=== PATIENT | female | born 1975 | race Caucasian/White ===

== ENCOUNTER 2016-12-27 08:25 | Day surgery (SDC) | payer OTHER ==
[~2016-12-27 08:25] MED LIST: Aloe Vera/Sodium Chloride Gel 14.1 GM Tube ONE; Dexamethasone 4 MG/ML 5 ML MDV ONE; EPINEPHrine 1 MG/ML SDV ONE; Lidocaine 2% 5 ML SDV ONE; Lidocaine 2% with EPINEPHrine 1:100,000 20 ML MDV ONE; Midazolam 1 MG/ML 2 ML SDV ONE; Neostigmine Methylsulfate 1 MG/ML 5 ML Syringe ONE; Ondansetron 4 MG/2 ML SDV ONE; Oxymetazoline 0.05% Nasal Spray 15 ML Bottle ONE; Phenylephrine 1% 10 MG/ML SDV ONE; Propofol 200 MG/20 ML SDV ONE; Remifentanil 1 MG Vial ONE; Rocuronium 10 MG/ML 10 ML Syringe ONE; Sodium Chloride 0.9% 60 ML ONE; Thrombin (Bovine) 5,000 Unit Kit ONE; ceFAZolin 2 GM in Premix Bag 1 BAG IV ONE; fentaNYL 250 MCG/5 ML SDV ONE
[2016-12-27] MEDS ORDERED: Lactated Ringers 1,000 ML IV SCH (09:00)
--- NOTE | 2016-12-27 09:06 | PCM.PREANE ---
Preanesthetic Assessment - Anesthesia/Transfusion/Family Hx Anesthesia History: Prior Anesthesia Without Reaction Family History of Anesthesia Reaction: No Transfusion History: No Prior Transfusion(s) Intubation History: Unknown - Review of Systems General: No Symptoms Pulmonary: No Symptoms Cardiovascular: No Symptoms Gastrointestinal: No Symptoms Neurological: No Symptoms Other: Reports: None - Physical Assessment Height: 1.65 m Weight: 93.894 kg ASA Class: 2 Mental Status: Alert & Oriented x3 Airway Class: Mallampati = 2 Dentition: Reports: Normal Dentition Thyro-Mental Finger Breadths: 3 Mouth Opening Finger Breadths: 2 ROM/Head Extension: Full Lungs: Clear to Auscultation, Normal Respiratory Effort Cardiovascular: Regular Rate, Regular Rhythm - Lab Values: Laboratory Last Values Urine HCG, Qual NEGATIVE (NEGATIVE) 12/27/16 08:29 - Allergies Allergies/Adverse Reactions: Allergies Allergy/AdvReac Type Severity Reaction Status Date / Time diphenhydramine Allergy Anxiety Verified 12/22/16 16:54 [From Benadryl] ketorolac [From Toradol] Allergy Abdominal Verified 12/22/16 16:54 Pain montelukast [From Singulair] Allergy Irritabilit Verified 12/22/16 16:54 y prednisone Allergy Tachycardia Verified 12/22/16 16:54 - Blood Blood Available: No - Anesthesia Plan Pre-Op Medication Ordered: None - Acknowledgements Anesthesia Type Planned: General Anesthesia Pt an Appropriate Candidate for the Planned Anesthesia: Yes Alternatives and Risks of Anesthesia Discussed w Pt/Guardian: Yes Pt/Guardian Understands and Agrees with Anesthesia Plan: Yes PreAnesthesia Questionnaire HEENT History: Reports: Allergic Rhinitis, Sinusitis Other HEENT History: wears glasses Cardiovascular History: Reports: None Respiratory History: Reports: Asthma Other Respiratory History: has Allergy Induced Asthma Gastrointestinal History: Reports: None 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 Musculoskeletal History: Reports: Back Pain, Chronic, Fracture Other Musculoskeletal History: hx of fx finger Neurological History: Reports: Migraines, Other (See Below) Other Neuro History: hx of motion sickness Psychiatric History: Reports: None Endocrine/Metabolic History: Reports: Obesity/BMI 30+ Hematologic History: Reports: None Immunologic History: Reports: None Oncologic (Cancer) History: Reports: None Dermatologic History: Reports: None - Past Surgical History Head Surgeries/Procedures: Reports: None GI Surgical History: Reports: Cholecystectomy Female Surgical History: Reports: Other (See Below) Other Female Surgeries/Procedures: exploratory laparotomy to check for endometriosis (none found) Musculoskeletal Surgical History: Reports: None - SUBSTANCE USE Smoking Status *Q: Never Smoker Recreational Drug Use History: No - HOME MEDS Home Medications: Home Meds Albuterol [IJD: Albuterol HFA] 1 puff INH ASDIRECTED PRN 12/22/16 [History] Budesonide [Pulmicort Flexhaler] 1 puff INH ASDIRECTED PRN 12/22/16 [History] Fish Oil/Jay-3 Fatty Acids [Fish Oil 1,000 MG] 1,000 mg PO DAILY 12/22/16 [ History] Multivitamin [Daily Multiple Vitamin] 1 tab PO DAILY 12/22/16 [History] - CURRENT (IN HOUSE) MEDS Current Meds: Current Medications Lactated Ringer's (Ringers, Lactated) 1,000 mls @ 125 mls/hr IV ASDIRECTED BRENT Discontinued Medications Dexamethasone (Dexamethasone) Confirm Administered Dose 20 mg .ROUTE .STK-MED ONE Stop: 12/27/16 07:18 Epinephrine HCl (Adrenalin 1:1000) Confirm Administered Dose 3 mg .ROUTE .STK- MED ONE Stop: 12/27/16 07:18 Fentanyl (Sublimaze) Confirm Administered Dose 250 mcg .ROUTE .STK-MED ONE Stop: 12/27/16 07:31 Glycopyrrolate () Confirm Administered Dose 1 mg .ROUTE .STK-MED ONE Stop: 12/27/16 07:31 Cefazolin Sodium/Dextrose 2 gm (/ Premix) 50 mls @ 100 mls/hr IV ONETIME ONE Stop: 12/27/16 00:30 Sodium Chloride (Normal Saline) Confirm Administered Dose 60 mls @ as directed .ROUTE .STK-MED ONE Stop: 12/27/16 07:36 Lidocaine (Xylocaine-Mpf 2%) Confirm Administered Dose 10 ml .ROUTE .STK-MED ONE Stop: 12/27/16 07:18 Lidocaine (Xylocaine-Mpf 2%) Confirm Administered Dose 5 ml .ROUTE .STK-MED ONE Stop: 12/27/16 07:31 Lidocaine/Epinephrine (Xylocaine 2% With Epinephrine 1:100,000) Confirm Administered Dose 20 ml .ROUTE .STK-MED ONE Stop: 12/27/16 07:19 Midazolam HCl (Versed 1 Mg/Ml) Confirm Administered Dose 2 mg .ROUTE .STK-MED ONE Stop: 12/27/16 07:31 Neostigmine Methylsulfate (Neostigmine) Confirm Administered Dose 5 mg .ROUTE .STK-MED ONE Stop: 12/27/16 07:31 Ondansetron HCl (Zofran) Confirm Administered Dose 4 mg .ROUTE .STK-MED ONE Stop: 12/27/16 07:31 Oxymetazoline HCl (Afrin Original 0.05% Nasal [place]) Confirm Administered Dose 30 ml .ROUTE .STK-MED ONE Stop: 12/27/16 07:19 Phenylephrine HCl (Bernard-Synephrine) Confirm Administered Dose 10 mg .ROUTE .STK- MED ONE Stop: 12/27/16 07:31 Propofol (Diprivan 20 Ml) Confirm Administered Dose 200 mg .ROUTE .STK-MED ONE Stop: 12/27/16 07:31 Propofol (Diprivan 20 Ml) Confirm Administered Dose 600 mg .ROUTE .STK-MED ONE Stop: 12/27/16 07:32 Remifentanil (Ultiva) Confirm Administered Dose 2 mg .ROUTE .STK-MED ONE Stop: 12/27/16 07:34 Rocuronium [place] (Zemuron) Confirm Administered Dose 100 mg .ROUTE .STK-MED ONE Stop: 12/27/16 07:31 Sodium Chloride ([place] Saline Nasal Gel) Confirm Administered Dose 14.1 gm .ROUTE .STK-MED ONE Stop: 12/27/16 07:23 Thrombin (Thrombin-Jmi) Confirm Administered Dose 5,000 unit .ROUTE .STK-MED ONE Stop: 12/27/16 07:19
[2016-12-27] MEDS ORDERED: Sodium Chloride 0.9% 20 ML ONE (09:47)
[2016-12-27] MEDS ORDERED: ePHEDrine 50 MG/ML SDV ONE (09:48)
[2016-12-27] MEDS ORDERED: Water For Injection, Sterile 20 ML ONE ×2 (09:49→11:21)
--- NOTE | 2016-12-27 11:07 | PCM.OPNOTE ---
- General Post-Op/Procedure Note Date of Surgery/Procedure: 12/27/16 Condition: Good Free Text/Narrative:: Pre operative diagnosis: Nasal obstruction, chronic sinusitis, deviated nasal septum, elyssa inferior turbinate hypertrophy, elyssa maxillary and ethmoid sinusitis. Post operative diagnosis: As above Procedure: Coblation reducion of bilateral inferior turbinates [ CPT 54817 (50)] , Nasal septoplasty [ 66671 ], Bilateral Endoscopic sinus surgery - middle meatal antrotomy [ CPT 56495 (50)], bilateral ethmoidectomy [ CPT 82926(50)], uncinectomy, Sinus Navigation [ 34275] Surgeon: Roselia Dickson MD Anesthesia: GA Anesthesiologist: Key Lam Date of procedure: 12/27/2016 Indications: Mame was seen in my clinic with above symptoms. A CT scan of the paranasal sinuses showed bilateral osteo meatal unit blockage with mild maxillary sinus disease with patchy opacification ethmoid sinuses bilaterally with deviated nasal septum. Her symptoms persisted despite maximal medical therapy. With her persistent clinical symptoms and CT findings she was consented for the procedure above. Findings: Bilateral inferior turbinate hypertrophy. Deviation of the nasal septum predominantly to the left side. Spur along the floor on the left impinging on the inferior turbinate posteriorly - this was found to be a combination of septal cartilage and vomer. There was also high deviation of the septum on the left corresponding to the perpendicular plate of the ethmoid. Edematous osteomeatal unit bilaterally. Ethmoid cells were clear. Operation details: An informed consent was obtained. A time out was performed and the patient was brought back to the operating room. Gen. anesthesia was administered with an endotracheal tube. Bilateral eyes were left exposed and lubricating ointment was inserted into the eyes. A pharyngeal pack was placed. A 0 degree rigid nasal endoscope was used to examine bilateral nasal cavities and photo documentation was obtained. The left inferior turbinate was addressed first. 2% lidocaine was injected into the inferior turbinate - 3 mls were used. The nasal cavity was packed with Afrin soaked pledget. After adequte period of decongestion the pledget was removed. A reflex 45 coblation wand with tip dipped in AYR Gel was used at setting of 6 :2 for Coblation and coagulation respectively. The point of entry was coagulated and wand was inserted till the third marking. Three jones were created in the single channel. The inferior turbinate was visibly shrunk. Similar procedure was repeated on the right side - 3ml of lidocaine was used; there was visible reduction in size of turbinate subsequent to coblation. Bilateral nasal cavities were then packed with oxymetazoline 0.05% soaked cottonoid pledgets. After an appropriate period of decongestion the pledgets were removed. Nasal septum was infiltrated with 2% lidocaine 1: 100, 000 epinephrine in a standard fashion-a total of 4.5 mls was used. The pledgets were then removed. A Left Fady incision was performed. A left sided mucoperichondrial flap was elevated-dissection was commenced with 2 mm osteotome and further carried out with combination of navdeep and Ophiem elevators. Posteriorly the flap was continued as a muco periosteal flap. A posterior chondrotomy was performed. Right-sided mucoperiosteal flap was elevated. A hare scissor was used and the perpendicular plate of the ethmoid was removed. Carefully , the flap was elevated off the Left sided bony cartilaginous spur. There was a tear in the flap on Left along the floor. Contralateral flap along the floor of cartilage was also elevated. Flap on the Right side was intact throughout. The chondro vomerine spur was removed. Subsequent to this, the septum was positioned towards the midline. Flap incision was sutured with 4-0 plain gut. Mattress sutures were also performed. The [employer] medical navigation system was set up and the Tracker was fixed to the fore head as per protocol and successful registration was obtained. The left middle turbinate axilla and the head of middle turbinate were infiltrated with 2% lidocaine and 1 in 100,000 epinephrine-a total of 1.0 ml was used. Similar injections were performed on the right side and further 1 ml was used on this side. A cottonoid pledget soaked in 1: 5000 epinephrine each was placed in the middle meatus, draping over the middle turbinate axilla and in the sphenoethmoid recess- this was done bilaterally. The left side was addressed first. After appropriate period of decongestion the cottonoid pledgets were removed. The middle turbinate was gently medialized with freer elevator and the 0 rigid nasal endoscope was introduced into the middle meatus. The posterior free edge of the uncinate process was identified and medialized with a ball probe. A right sided pediatric backbiter was used to remove the uncinate process at the junction of the horizontal and vertical part. A straight shot tri-cut blade with navigation attached to it was then used to debride the vertical attachment of the uncinate process up to the attachment of and including the Agger nasi cell. A ball probe was then used to identified the left maxillary sinus ostium The horizontal part of the uncinate process was then further dissected away with a ball probe and then with a combination of microdebrider and cold steel dissection. The 30 rigid endoscope was used to examine the maxillary ostium - findings as above. The maxillary sinus was thoroughly irrigated with saline. A 0 degree nasal endoscope was used and next the natural ostium of the left bulla ethmoidalis was identified and down fractured with a curette. Further removal of the bulla was performed with a microdebrider blade and anterior ethmoid cells were removed. The mucosa of bulla and anterior ethmoid cells was healthy. The posterior ethmoids were entered by penetrating the ground lamella at the junction of horizontal and vertical part with a curette; further dissection was carried out with a microdebrider and the anterior layer of posterior ethmoid cells were cleared sequentially. Attention was then directed towards the right side. The cottonoid pledgets were removed. The middle turbinate was gently medialized with freer elevator and the 0 rigid nasal endoscope was introduced into the middle meatus. The posterior free edge of the uncinate process was identified and medialized with a ball probe. A left sided pediatric backbiter was used to remove the uncinate process at the junction of the horizontal and vertical part. A straight shot tri-cut blade with navigation attached to it was then used to debride the vertical attachment of the uncinate process up to the attachment of Agger nasi cell. A ball probe was then used to identified the left maxillary sinus ostium The horizontal part of the uncinate process was then further dissected away with a ball probe and then with a combination of microdebrider and cold steel dissection. The 30 rigid endoscope was used to examine the maxillary ostium - findings as above. The maxillary sinus was thoroughly irrigated with saline. A 0 degree nasal endoscope was used and next the natural ostium of the left bulla ethmoidalis was identified and down fractured with a curette. Further removal of the bulla was performed with a microdebrider blade and anterior ethmoid cells were removed. The mucosa of bulla and anterior ethmoid cells was healthy. The posterior ethmoids were entered by penetrating the ground lamella at the junction of horizontal and vertical part with a curette; further dissection was carried out with a microdebrider and the anterior layer of posterior ethmoid cells were cleared sequentially. Bilateral middle meatus Nasopore packs placed; bilateral nasal [place] splints placed and sutured with 2.0 Nylon to columella.Hemostasis was ensured. Pharyngeal pack was removed. Specimens: none IV fluids: 2000 ml Blood loss: 20 ml Blood products: nil Disposition: PACU for recovery Follow up: 1 week.
[2016-12-27] MEDS ORDERED: Mineral Oil/Petrolatum Ophth Oint 3.5 GM Tube ONE (11:14)
[2016-12-27] MEDS ORDERED: Phenylephrine/Normal Saline 100 MCG/ML 10 ML Syringe ONE (11:19)
[2016-12-27] MEDS ORDERED: ceFAZolin 1 GM Vial ONE (11:21)
[2016-12-27] MEDS ORDERED: Phenylephrine 1% 10 MG/ML SDV ONE (13:18)
[2016-12-27] MEDS ORDERED: Propofol 200 MG/20 ML SDV ONE (13:20)
[2016-12-27] MEDS ORDERED: HYDROmorphone 2 MG/ML Syringe ONE (13:28)
[2016-12-27] MEDS ORDERED: Dexamethasone 4 MG/ML 5 ML MDV ONE (14:06)
[2016-12-27] MEDS ORDERED: fentaNYL 100 MCG/2 ML SDV IVPUSH PRN (14:29)
[2016-12-27] MEDS ORDERED: oxyCODONE 5 MG Tab PO PRN (14:51)
[2016-12-27] MEDS ORDERED: Acetaminophen 325 MG Tab PO PRN (14:51)
--- NOTE | 2016-12-27 15:18 | PCM.POSTAN ---
POST ANESTHESIA ASSESSMENT - MENTAL STATUS Mental Status: Alert - RESPIRATORY Respiratory Status: Respiratory Rate WNL, Airway Patent, O2 Saturation Stable - CARDIOVASCULAR CV Status: Pulse Rate WNL, Blood Pressure Stable, Elevated Pulse Rate - GASTROINTESTINAL GI Status: No Symptoms - POST OP HYDRATION Hydration Status: Adequate & Stable - OBSERVATIONS Free Text/Narrative:: No anesthesia related issues.
[2016-12-27] MEDS ORDERED: Ondansetron 4 MG/2 ML SDV IVPUSH ONE (17:45)
== END 2016-12-27 19:49 | disposition home or self-care (01) ==
LOC: MW.SDS 08:25 → MW.MS 17:09 → MW.SDS 19:49
PROVIDERS: ATTEND Otolaryngology
DX: J34.2 Deviated nasal septum (principal); J34.3 Hypertrophy of nasal turbinates; J32.0 Chronic maxillary sinusitis; J32.2 Chronic ethmoidal sinusitis; J45.909 Unspecified asthma, uncomplicated; E66.9 Obesity, unspecified; Z90.49 Acquired absence of other specified parts of digestive tract; Z98.890 Other specified postprocedural states; Z88.8 Allergy status to other drugs, medicaments and biological substances
CPT/HCPCS: 30520; 30802; 31255; 31256; 61782; 81025; A9270; J0171; J0690; J1100; J1170; J2250; J2370; J2405; J3010; J7120; 00160; J2704

== ENCOUNTER 2017-05-05 13:14 | Emergency (ER) | payer OTHER ==
[2017-05-05] MEDS ORDERED: Sodium Chloride 0.9% 1,000 ML IV ONE (13:42)
[2017-05-05] MEDS ORDERED: Sodium Chloride 0.9% 2.5 ML Syringe FLUSH PRN (13:42)
[2017-05-05] MEDS ORDERED: Sodium Chloride 0.9% 10 ML Syringe FLUSH PRN (13:42)
--- NOTE | 2017-05-05 13:44 | EDM.PDOC ---
ED HPI GENERAL MEDICAL PROBLEM - General Chief Complaint: Genitourinary Problem Stated Complaint: HAD SURGERY/PAIN DISCHARGE Time Seen by Provider: 05/05/17 13:15 Source of Information: Reports: Patient History Limitations: Reports: No Limitations - History of Present Illness INITIAL COMMENTS - FREE TEXT/NARRATIVE: History of present illness: []Patient had a total vaginal history 9 days ago with bladder sling and perineal repair. Review of systems: As per history of present illness and below otherwise all systems reviewed and negative. Past medical history: As per history of present illness and as reviewed below otherwise noncontributory. Surgical history: As per history of present illness and as reviewed below otherwise noncontributory. Social history: No reported history of drug or alcohol abuse. Family history: As per history of present illness and as reviewed below otherwise noncontributory. Physical exam: General: Well developed, well nourished in NAD HEENT: Atraumatic, normocephalic, pupils reactive, negative for conjunctival pallor or scleral icterus, mucous membranes moist, throat clear, neck supple, nontender, trachea midline. Lungs: Clear to auscultation, breath sounds equal bilaterally, chest nontender. Heart: S1S2, regular, negative for clicks, rubs, or JVD. Abdomen: Soft, nondistended, nontender. Negative for masses or hepatosplenomegaly. Negative for costovertebral tenderness. Pelvis: Stable nontender. Genitourinary: Dark red oozing blood from vagina no purulent drainage very tender to palpation. No obvious sign of active bleeding Rectal: Deferred. Extremities: Atraumatic, negative for cords or calf pain. Neurovascular unremarkable. Neuro: Awake, alert, oriented. Cranial nerves II through XII unremarkable. Cerebellum unremarkable. Motor and sensory unremarkable throughout. Exam nonfocal. Diagnostics: []Labs showing an slightly elevated white count is normal and ultrasound with no signs of abscess or infection Therapeutics: []Morphine for pain Impression: []Post operative bleeding Plan: []I spoke to Dr. Hameed in [facility] on-call [facility] who recommended ruling out an abscess and placing her on Keflex if negative. Keflex as directed follow-up with [facility]. Definitive disposition and diagnosis as appropriate pending reevaluation and review of above. Perineal Area Pain Score (Numeric/FACES): 6 - Related Data Allergies Allergy/AdvReac Type Severity Reaction Status Date / Time diphenhydramine Allergy Anxiety Verified 05/05/17 13:42 [From Benadryl] ketorolac [From Toradol] Allergy Abdominal Verified 05/05/17 13:42 Pain latex Allergy Wheezing Verified 05/05/17 13:42 montelukast [From Singulair] Allergy Irritabilit Verified 05/05/17 13:42 y prednisone Allergy Tachycardia Verified 05/05/17 13:42 Home Meds: Home Meds Cephalexin [Keflex] 500 mg PO Q6HR #40 cap 05/05/17 [Rx] Cetirizine HCl [Zyrtec] 10 mg PO DAILY 05/05/17 [History] Fexofenadine [Tiffany] 60 mg PO DAILY 05/05/17 [History] Past Medical History HEENT History: Reports: Allergic Rhinitis, Sinusitis Other HEENT History: wears glasses Cardiovascular History: Reports: None Respiratory History: Reports: Asthma Other Respiratory History: has Allergy Induced Asthma Gastrointestinal History: Reports: None [employer]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 Musculoskeletal History: Reports: Back Pain, Chronic, Fracture Other Musculoskeletal History: hx of fx finger Neurological History: Reports: Migraines, Other (See Below) Other Neuro History: hx of motion sickness Psychiatric History: Reports: None Endocrine/Metabolic History: Reports: Obesity/BMI 30+ Hematologic History: Reports: None Immunologic History: Reports: None Oncologic (Cancer) History: Reports: None Dermatologic History: Reports: None - Past Surgical History Head Surgeries/Procedures: Reports: None GI Surgical History: Reports: Cholecystectomy Female Surgical History: Reports: Other (See Below) Other Female Surgeries/Procedures: exploratory laparotomy to check for endometriosis (none found) Musculoskeletal Surgical History: Reports: None Social & Family History - Tobacco Use Smoking Status *Q: Never Smoker - Caffeine Use Caffeine Use: Reports: Coffee, Soda - Recreational Drug Use Recreational Drug Use: No Drug Use in Last 12 Months: No ED ROS GENERAL - Review of Systems Review Of Systems: See Below (See history of present illness) ED EXAM, RENAL/ - Physical Exam Exam: See Below (See history of present illness) Course - Vital Signs Last Recorded V/S: Last Vital Signs Temp 97.8 F 05/05/17 13:38 Pulse 90 05/05/17 13:38 Resp 18 05/05/17 13:38 BP 135/76 05/05/17 13:38 Pulse Ox 96 05/05/17 13:38 - Orders/Labs/Meds Orders: Active Orders 24 hr Category Date Time Status Pelvis Non OB Comp [US] Stat Exams 05/05/17 14:50 Taken CULTURE BLOOD [BC] Stat Lab 05/05/17 13:57 Received CULTURE BLOOD [BC] Stat Lab 05/05/17 14:10 Received Sodium Chloride 0.9% [Saline Flush] Med 05/05/17 13:42 Active 10 ml FLUSH ASDIRECTED PRN Sodium Chloride 0.9% [Saline Flush] Med 05/05/17 13:42 Active 2.5 ml FLUSH ASDIRECTED PRN Blood Culture x2 Reflex Set [OM.PC] Stat Oth 05/05/17 13:43 Ordered Saline Lock Insert [OM.PC] Stat Oth 05/05/17 13:42 Ordered Medication Orders Sodium Chloride (Saline Flush) 10 ml FLUSH ASDIRECTED PRN PRN Reason: Keep Vein Open Last Admin: 05/05/17 14:31 Dose: 10 ml Sodium Chloride (Saline Flush) 2.5 ml FLUSH ASDIRECTED PRN PRN Reason: Keep Vein Open Last Admin: 05/05/17 14:31 Dose: 2.5 ml Labs: Laboratory Tests 05/05/17 05/05/17 05/05/17 Range/Units 13:57 13:57 15:50 WBC 11.27 H (4.0-11.0) K/uL RBC 3.98 L (4.30-5.90) M/uL Hgb 12.2 (12.0-16.0) g/dL Hct 36.5 (36.0-46.0) % MCV 91.7 (80.0-98.0) fL MCH 30.7 (27.0-32.0) pg MCHC 33.4 (31.0-37.0) g/dL RDW Std Deviation 44.8 (28.0-62.0) fl RDW Coeff of Zuhair 14 (11.0-15.0) % Plt Count 346 (150-400) K/uL MPV 10.00 (7.40-12.00) fL Neut % (Auto) 71.0 (48.0-80.0) % Lymph % (Auto) 17.1 (16.0-40.0) % [place] % (Auto) 8.9 (0.0-15.0) % Eos % (Auto) 2.8 (0.0-7.0) % Baso % (Auto) 0.2 (0.0-1.5) % Neut # (Auto) 8.0 H (1.4-5.7) K/uL Lymph # (Auto) 1.9 (0.6-2.4) K/uL [place] # (Auto) 1.0 H (0.0-0.8) K/uL Eos # (Auto) 0.3 (0.0-0.7) K/uL Baso # (Auto) 0.0 (0.0-0.1) K/uL Nucleated RBC % 0.2 /100WBC Nucleated RBCs # 0 K/uL Sodium 139 (136-146) mmol/L Potassium 3.8 (3.5-5.1) mmol/L Chloride 107 (98-110) mmol/L Carbon Dioxide 21 (21-31) mmol/L BUN 15 (6.0-23.0) mg/dL Creatinine 0.7 (0.6-1.5) mg/dL Est Cr Clr Drug Dosing 95.17 mL/min Estimated GFR (MDRD) > 60.0 ml/min Glucose 90 (60-110) mg/dL Calcium 9.2 (8.8-10.8) mg/dL Total Bilirubin 0.5 (0.1-1.5) mg/dL AST 17 (5-40) IU/L ALT 26 (8-54) IU/L Alkaline Phosphatase 83 (40-150) Total Protein 7.1 (6.0-8.0) g/dL Albumin 3.7 (3.5-5.0) g/dL Globulin 3.4 (2.0-3.5) g/dL Albumin/Globulin Ratio 1.1 L (1.3-2.8) Urine Color DARK YELLOW Urine Appearance CLOUDY Urine pH 6.0 (5.0-8.0) Ur Specific [place] 1.025 (1.001-1.035) Urine Protein 30 (NEGATIVE) mg/dL Urine Glucose (UA) NEGATIVE (NEGATIVE) mg/dL Urine Ketones NEGATIVE (NEGATIVE) mg/dL Urine Occult Blood LARGE H (NEGATIVE) Urine Nitrite NEGATIVE (NEGATIVE) Urine Bilirubin NEGATIVE (NEGATIVE) Urine Ictotest NEGATIVE Urine Urobilinogen 0.2 (<2.0) EU/dL Ur Leukocyte Esterase MODERATE (NEGATIVE) Urine RBC 30-40 (0-2/HPF) Urine WBC 10-15 (0-5/HPF) Ur Epithelial Cells MODERATE (NONE-FEW) Amorphous Sediment LIGHT (NEGATIVE) Urine Bacteria 2+ H (NEGATIVE) Urine Mucus LIGHT (NONE-MOD) Meds: Medications Generic Name Dose Route Start Last Admin Trade Name Freq PRN Reason Stop Dose Admin Sodium Chloride 10 ml 05/05/17 13:42 05/05/17 14:31 Saline Flush FLUSH 10 ml ASDIRECTED PRN Administration Keep Vein Open Sodium Chloride 2.5 ml 05/05/17 13:42 05/05/17 14:31 Saline Flush FLUSH 2.5 ml ASDIRECTED PRN Administration Keep Vein Open Discontinued Medications Generic Name Dose Route Start Last Admin Trade Name Freq PRN Reason Stop Dose Admin Sodium Chloride 1,000 mls @ 999 mls/hr 05/05/17 13:42 05/05/17 14:30 Normal Saline IV 05/05/17 14:42 999 mls/hr .Bolus ONE Administration Morphine Sulfate 4 mg 05/05/17 14:58 05/05/17 15:20 Morphine IVPUSH 05/05/17 14:59 4 mg ONETIME ONE Administration Ondansetron HCl 4 mg 05/05/17 14:59 05/05/17 15:20 Zofran IVPUSH 05/05/17 15:00 4 mg ONETIME ONE Administration Departure - Departure Time of Disposition: 16:29 Disposition: Home, Self-Care 01 Condition: Good Clinical Impression: Post-op bleeding Qualifiers: Surgical complication system/body Area: genitourinary Procedure type: genitourinary Qualified Code(s): N99.820 - Postprocedural hemorrhage of a genitourinary system organ or structure following a genitourinary system procedure - Discharge Information Prescriptions: Cephalexin [Keflex] 500 mg PO Q6HR #40 cap Referrals: PCP,None [Primary Care Provider] - Forms: ED Department Discharge, ED Department Discharge Additional Instructions: The following information is given to patients seen in the emergency department who are being discharged to home. This information is to outline your options for follow-up care. We provide all patients seen in our emergency department with a follow-up referral. The need for follow-up, as well as the timing and circumstances, are variable depending upon the specifics of your emergency department visit. If you don't have a primary care physician on staff, we will provide you with a referral. We always advise you to contact your personal physician following an emergency department visit to inform them of the circumstance of the visit and for follow-up with them and/or the need for any referrals to a consulting specialist. The emergency department will also refer you to a specialist when appropriate. This referral assures that you have the opportunity for follow-up care with a specialist. All of these measure are taken in an effort to provide you with optimal care, which includes your follow-up. Under all circumstances we always encourage you to contact your private physician who remains a resource for coordinating your care. When calling for follow-up care, please make the office aware that this follow-up is from your recent emergency room visit. If for any reason you are refused follow-up, please contact the [facility] Emergency Department at and asked to speak to the emergency department charge nurse. Continue regular meds, Keflex as directed follow-up with [facility]. If symptoms worsen or change [facility] [address] [place] [id number] - My Orders Last 24 Hours: My Active Orders 05/05/17 13:42 Sodium Chloride 0.9% [Saline Flush] 10 ml FLUSH ASDIRECTED PRN Sodium Chloride 0.9% [Saline Flush] 2.5 ml FLUSH ASDIRECTED PRN Saline Lock Insert [OM.PC] Stat 05/05/17 13:43 Blood Culture x2 Reflex Set [OM.PC] Stat 05/05/17 13:57 CULTURE BLOOD [BC] Stat 05/05/17 14:10 CULTURE BLOOD [BC] Stat 05/05/17 14:50 Pelvis Non OB Comp [US] Stat - Assessment/Plan Last 24 Hours: My Active Orders 05/05/17 13:42 Sodium Chloride 0.9% [Saline Flush] 10 ml FLUSH ASDIRECTED PRN Sodium Chloride 0.9% [Saline Flush] 2.5 ml FLUSH ASDIRECTED PRN Saline Lock Insert [OM.PC] Stat 05/05/17 13:43 Blood Culture x2 Reflex Set [OM.PC] Stat 05/05/17 13:57 CULTURE BLOOD [BC] Stat 05/05/17 14:10 CULTURE BLOOD [BC] Stat 05/05/17 14:50 Pelvis Non OB Comp [US] Stat
[2017-05-05 14:38] LABS: CHLORIDE,CL 107 mmol/L (98-110); SODIUM,NA 139 mmol/L (136-146)
[2017-05-05] MEDS ORDERED: Morphine 2 MG/ML Syringe IVPUSH ONE (14:58)
[2017-05-05] MEDS ORDERED: Ondansetron 4 MG/2 ML SDV IVPUSH ONE (14:59)
--- NOTE | 2017-05-07 15:57 | US ---
EXAM DATE: 05/05/17 PATIENT'S AGE: 41 Patient: JONATHAN CASTLE Facility: [place], [place] Site . Site : [id number] Study: US Pelvis [id number] 3:57:01 PM Ordering Physician: Dewey Galicia Final Report: INDICATION: Postoperative bleeding and fever. Recent hysterectomy and left oophorectomy. TECHNIQUE: Transabdominal and transperineal imaging. COMPARISON: None available. FINDINGS: The uterus is not visualized. The right ovary is visualized, and is normal in size and demonstrates blood flow with color and spectral Doppler analysis. The left ovary is not visualized. There is a small amount of free fluid in the pelvis. IMPRESSION: 1. The uterus and left ovary are not visualized consistent with the surgical history. 2. Right ovary appears unremarkable. 3. Sonographically, there does not appear to be a significant amount of free fluid in the pelvis. Dictated by Vipul Wallace MD @ 05/05/2017 4:10:48 PM Dictated by: Vipul Wallace MD @ 05/05/2017 16:11:08 (Electronic Signature) Report Signed by Proxy. JOY
== END 2017-05-05 17:07 | disposition home or self-care (01) ==
LOC: MW.ED 13:14
DX: N99.820 Postprocedural hemorrhage of a genitourinary system organ or structure following a genitourinary system procedure (principal); Z88.6 Allergy status to analgesic agent; Z91.040 Latex allergy status; Z79.899 Other long term (current) drug therapy
CPT/HCPCS: 36415; 76856; 80053; 81001; 85025; 87040; 96361; 96374; 96375; 99284; J2270; J2405; J7040; 99282